=== PATIENT | male | born 1985 | race Caucasian/White ===

== ENCOUNTER 2017-02-11 17:55 | Emergency (ER) | payer SELFPAY ==
[2017-02-11 18:06] VITALS: BP 160/100
--- NOTE | 2017-02-11 18:32 | ER Document Report ---
ED Cardiac - General Chief Complaint: Chest Pain Stated Complaint: CHEST PAIN Time Seen by Provider: 02/11/17 18:26 Mode of Arrival: Ambulatory Information source: Patient Notes: Patient states he was seen at home when he got the sudden onset of nausea and some central chest discomfort. No shortness of breath. He did have some sweating. He states he has been under a lot of stress lately since he lost his job and he feels this is due to stress. He also states he has a history of anxiety and panic attacks. Patient states that the pain does not radiate. Nothing makes it better or worse. He states it has gradually been getting better since the onset. No cough cold or congestion. No family history of heart disease. TRAVEL OUTSIDE OF THE [place] IN LAST 30 DAYS: No - Related Data Allergies/Adverse Reactions: No Known Allergies Allergy (Unverified 02/23/14 22:30) Past Medical History - General Information source: Patient - Social History Smoking Status: Current Every Day Smoker Chew tobacco use (# tins/day): Yes Frequency of alcohol use: Occasional Drug Abuse: None Family History: Reviewed & Not Pertinent Patient has suicidal ideation: No Patient has homicidal ideation: No Renal/ Medical History: Denies: Hx Peritoneal Dialysis GI Medical History: Reports: Hx Hiatal Hernia - with repair Past Surgical History: Reports: Hx Herniorrhaphy, Hx Oral Surgery, Hx Orthopedic Surgery, Hx Tonsillectomy - Immunizations Hx Diphtheria, Pertussis, Tetanus Vaccination: Yes Review of Systems - Review of Systems Constitutional: denies: Chills, Fever Respiratory: denies: Cough, Hemoptysis Gastrointestinal: denies: Abdominal pain, Vomiting Skin: denies: Lesions, Rash -: Yes All other systems reviewed and negative Physical Exam - Vital signs Vitals: Temp Pulse Resp BP Pulse Ox 99.5 F 96 20 160/100 H 97 02/11/17 18:03 02/11/17 18:03 02/11/17 18:03 02/11/17 18:03 02/11/17 18:03 Interpretation: Hypertensive - General General appearance: Appears well, Alert - HEENT Head: Normocephalic, Atraumatic Eyes: Normal Pupils: PERRL - Respiratory Respiratory status: No respiratory distress Chest status: Nontender Breath sounds: Normal Chest palpation: Normal - Cardiovascular Rhythm: Regular Heart sounds: Normal auscultation Murmur: No - Abdominal Inspection: Normal Distension: No distension Bowel sounds: Normal Tenderness: Nontender Organomegaly: No organomegaly - Back Back: Normal, Nontender - Extremities General upper extremity: Normal inspection, Nontender, Normal color, Normal ROM , Normal temperature General lower extremity: Normal inspection, Nontender, Normal color, Normal ROM , Normal temperature, Normal weight bearing. No: Scott's sign - Neurological Neuro grossly intact: Yes Cognition: Normal Orientation: AAOx4 [place] Coma Scale Eye Opening: Spontaneous [place] Coma Scale Verbal: Oriented [place] Coma Scale Motor: Obeys Commands [place] Coma Scale Total: 15 Speech: Normal Motor strength normal: LUE, RUE, LLE, RLE Sensory: Normal - Psychological Associated symptoms: Normal affect, Normal mood - Skin Skin Temperature: Warm Skin Moisture: Dry Skin Color: Normal Course - Re-evaluation Re-evalutation: 02/11/17 18:28 Patient refuses to have his blood drawn. Patient states that he will "freak out " if we draw his blood. He states that he knows this is necessary to better evaluate him for the cause of his pain. He understands that cardiac enzymes would be drawn and this would indicate if he was having occult coronary artery disease. He understands that by refusing to have his blood drawn he is risking that I will be unable to ascertain the cause of his symptoms. He understands one of these causes could possibly be coronary artery disease. Understands that the risk of this is or permanent disability. He is of sound mind and capable of making his own judgments. - Vital Signs Vital signs: Temp Pulse Resp BP Pulse Ox 99.5 F 96 20 160/100 H 97 02/11/17 18:03 02/11/17 18:03 02/11/17 18:03 02/11/17 18:03 02/11/17 18:03 - EKG Interpretation by Oh EKG shows normal: Sinus rhythm Rate: Tachycardia Voltage: No: Increased voltage Discharge - Discharge Clinical Impression: Atypical chest pain Condition: Stable Disposition: HOME, SELF-CARE Instructions: Chest Pain of Unclear Cause ([facility]) Additional Instructions: Please call your primary care physician as soon as possible to arrange reevaluation. Prescriptions: Lorazepam [Ativan 1 mg Tablet] 1 mg PO BID PRN #10 tablet PRN Reason: Referrals: OWEN WHITLEY MD [ACTIVE STAFF] - Follow up as needed
--- NOTE | 2017-02-11 19:10 | EKG REPORT ---
SEVERITY:- BORDERLINE ECG - SINUS TACHYCARDIA BORDERLINE T WAVE ABNORMALITIES : Confirmed by: Russell Harvey MD 11-Feb-2017 19:09:21
== END 2017-02-11 18:45 | disposition home or self-care (01) ==
LOC: ER 17:55
DX: R07.89 Other chest pain (principal); R00.0 Tachycardia, unspecified; R11.0 Nausea; R61 Generalized hyperhidrosis; F17.200 Nicotine dependence, unspecified, uncomplicated; Z53.29 Procedure and treatment not carried out because of patient's decision for other reasons
CPT/HCPCS: 93005; 93010; 99285